=== PATIENT | female | born 1990 | race Asian ===

== ENCOUNTER 2017-10-28 06:12 | Inpatient (IN) | payer OTHER ==
[~2017-10-28] VITALS: Ht 162.6 cm; Wt 70.5 kg
[~2017-10-28 06:12] MED LIST: MOTRIN 800800 MG/TAB PO; PRENATAL1 TA7 PO
[2017-12-23] VITALS (29 sets, daily range): BP systolic 105–1119; BP diastolic 57–76; PULSE 60–77; TEMP 97.3–98.2
[2017-12-23] MEDS ORDERED: PRENATAL (08:36)
[2017-12-23 08:49] LABS: BASO % 0.3 % (0.0-2.0); EOS # 0.1 (0.0-0.7); EOS % 1.4 % (0-4.0); GRAN # 4.6 (1.4-6.5); GRAN % 65.2 % (42.2-75.2); HEMATOCRIT 38.4 % (37.0-47.0); LYMPH # 1.8 (1.2-3.4); LYMPH % 25.3 % (20.0-51.0); MEAN CELL VOLUME 97 fl (80.0-100.0); MEAN CORPUSCULAR HEMOGLOBIN 33 pg (27.0-31.0); MEAN CORPUSCULAR HGB CONC 34 g/dl (33.0-37.0); MEAN PLATELET VOLUME 12.2 fl (7.4-10.4); MONO # 0.5 (0.1-0.6); MONO % 6.5 % (1.7-9.3); PLATELET COUNT 174 K/mm3 (130-400); RED BLOOD COUNT 3.96 M/mm3 (4.10-5.30); REDCELL DISTRIBUTION WIDTH-CV 12.7 % (11.5-14.5)
[2017-12-24 07:52] VITALS: BP 107/66; PULSE 70; TEMP 97.8
[2017-12-24 15:52] VITALS: BP 107/65; PULSE 72; TEMP 97.5
[2017-12-24 18:45] VITALS: BP 106/64; PULSE 69; TEMP 97.3
[2017-12-25 07:20] VITALS: BP 99/55; PULSE 65; TEMP 97.3
[2017-12-25] MEDS ORDERED: IBU800 M1 PO (08:11)
[2017-12-25] MEDS ORDERED: PERCOCET 325 MG1 TA2 PO (08:11)
== END 2017-12-25 11:55 | disposition home or self-care (01) | DRG 775 ==
LOC: LDR 12-23 07:11 → OB 12-23 08:38 → LDR 01-04 06:11
PROVIDERS: Obstetrics & Gynecology
PROC: 10E0XZZ Delivery of Products of Conception, External Approach (ICD-10-PCS; principal; 2017-12-23)
PROC: 0KQM0ZZ Repair Perineum Muscle, Open Approach (ICD-10-PCS; 2017-12-23)
DX: O69.81X0 Labor and delivery complicated by cord around neck, without compression, not applicable or unspecified (principal); O70.1 Second degree perineal laceration during delivery; Z3A.39 39 weeks gestation of pregnancy; Z37.0 Single live birth
CPT/HCPCS: J2590; J7120